=== PATIENT | female | born 1965 | race Two or more races ===

== ENCOUNTER 2024-03-27 13:03 | Inpatient (IN) | payer OTHER ==
[~2024-03-27] VITALS: Ht 157.5 cm; Wt 113.4 kg
--- NOTE | 2024-03-27 13:47 | DVH ---
CHEST RADIOGRAPH Indication: SOB Technique: Single frontal view of the chest was obtained COMPARISON: None FINDINGS: Lines and Tubes: None Lungs: Clear Pleura: No effusion. No pneumothorax. Cardiomediastinal contours: Unremarkable Bones: Unremarkable IMPRESSION: 1. No acute disease.
[2024-03-27 14:02] LABS: Basophils # (auto) 0 10 ^3/uL (0-0.2); Basophils % (auto) 0.3 % (0.0-2.0); Eosinophils # (auto) 0 10 ^3/uL (0-0.8); Eosinophils % (auto) 0.3 % (0.0-7.0); Hematocrit 43.1 % (36.0-46.0); Hemoglobin 14.7 g/dL (12.2-16.2); Lymphocytes % (auto) 11.6 % (10.0-50.0); Mean Corpuscular Hemoglobin 30.9 pg (28.0-32.0); Mean Corpuscular Hgb Conc. 34.2 g/dL (32.0-36.0); Mean Corpuscular Volume 90.6 fL (80.0-100.0); Monocytes # (auto) 0.2 10 ^3/uL (0-1.3); Monocytes % (auto) 1.9 % (0.0-12.0); Neutrophils # (auto) 7.6 10 ^3/uL (1.6-8.6); Neutrophils % (auto) 85.9 % (37.0-80.0); Platelet Count (auto) 161 10^3/uL (140-450); Red Blood Cells 4.76 10^6/uL (4.0-5.20); Red Cell Distribution Width 15.6 % (11.8-14.3); White Blood Cell 8.9 10^3/uL (4.4-10.8)
--- NOTE | 2024-03-27 14:12 | ED.PDOC ---
SOB-HPI HPI Comments 59y F who presents to the ED via EMS for chief complaint of shorntess of breath. Pt states she has been having shortness of breath for the past 2 weeks. Pt states she has been having cough and states she went to [facility]. Pt states she was dx with COVKATHLEEN and PNA at [facility] and recently discharged. Pt states earlier today, she started to have increased shortness of breath and called EMS. EMS upon arrival, pt had 02 sat of 87% and pt was placed on 02 and pt 02 sat went to 94% and pt was placed on 4 L and brought to the ED. Pt in the ED, otherwise has no current respiratory distress. Pt otherwise denies chest pain and any associated symptoms. Pt denies any other symptoms at this time. Chief Complaint: Shortness of Breath Time Seen by MD: 14:00 Reviewed notes: Nurses Notes Information Source: Patient, Emergency Med Personnel Mode of Arrival: EMS Brought in by: EMS Past Medical History PAST MEDICAL HISTORY: Denies Surgical History: Denies all surgeries ANIMAL PHYSIOLOGIST History: Unknown Family History Family History: Unknown Social History Smoker: Non-Smoker Alcohol: Denies ETOH Use Drugs: Denies Drug Use Lives In: Home Constitutional: denies: chills, diaphoresis, fatigue, fever, malaise, sweats, weakness, others EENTM: denies: blurred vision, double vision, ear bleeding, ear discharge, ear drainage, ear pain, ear ringing, eye pain, eye redness, hearing loss, mouth pain, mouth swelling, nasal discharge, nose bleeding, nose congestion, nose pain, photophobia, tearing, throat pain, throat swelling, voice changes, others Respiratory: reports: cough, shortness of breath; denies: hemoptysis, orthopnea, SOB at rest, SOB with excertion, stridor, wheezing, others Cardiovascular: denies: chest pain, dizzy spells, diaphoresis, Dyspnea on exertion, edema, irregular heart beat, left arm pain, lightheadedness, palpitations, PND, syncope, others Gastrointestinal: denies: abdomen distended, abdominal pain, blood streaked bowels, constipated, diarrhea, dysphagia, difficulty swallowing, hematemesis, melena, nausea, poor appetite, poor fluid intake, rectal bleeding, rectal pain, vomiting, others Genitourinary: denies: abnormal vagina bleeding, burning, dyspareunia, dysuria, flank pain, frequency, hematuria, incontinence, pain, , vagina discharge, urgency, others Neurological: denies: dizziness, fainting, headache, left sided numbness, left sided weakness, numbness, paresthesia, pre-existing deficit, right sided numbness, right sided weakness, seizure, speech problems, tingling, tremors, weakness, others Musculoskeletal: denies: back pain, gout, joint pain, joint swelling, muscle pain, muscle stiffness, neck pain, others Integumetry: denies: bruises, change in color, change in hair/nails, dryness, laceration, lesions, lumps, rash, wounds, others Allergic/Immunocompromised: denies: Difficulty Healing, Frequent Infections, Hives, Itching, others Hematologic/Lymphatic: denies: anemia, blood clots, easy bleeding, easy bruising, swollen glands, others Endocrine: denies: excessive hunger, excessive sweating, excessive thirst, excessive urination, flushing, intolerance to cold, intolerance to heat, unexplained weight gain, unexplained weight loss, others Psychiatric: denies: anxiety, bipolar disorder, depression, hopeless, panic disorder, schizophrenia, sleepless, suicidal, others All Other Systems: Reviewed and Negative Physical Exam General Appearance: Moderate Distress HEENT: Normal ENT Inspection, Pharynx Normal, TMs Normal Neck: Full Range of Motion, Non-Tender, Normal, Normal Inspection Respiratory: Decreased Breath Sounds, Respiratory Distress Cardiovascular: No Edema, No JVD, No Murmur, No Gallop, Normal Peripheral Pulses, Regular Rate/Rhythm Breast Exam: Deferred Gastrointestinal: No Organomegaly, Non Tender, No Pulsatile Mass, Normal Bowel Sounds, Soft Genitalia: Deferred Pelvic: Deferred Rectal: Deferred Extremities: No calf tenderness, Normal capillary refill, Normal inspection, Normal range of motion, Non-tender, No pedal edema Musculoskeletal : Apperance: Normal Neurologic: Alert, 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 Was a procedure done?: No Differential Dx Differential Diagnosis: Asthma, Bronchitis, CHF, COPD, Pneumonia, Respiratory Distress, URI Comments COVID, Influenza A and B, X-Ray, Labs, Meds, VS Vital Signs Date Time Temp Pulse Resp B/P (MAP) Pulse Ox O2 Delivery O2 Flow Rate FiO2 03/27/24 13:08 Nasal Cannula* 2 28 03/27/24 13:08 Nasal Cannula* 2 28 03/27/24 13:08 98.7 90 20 152/100 (117) 97 03/27/24 13:06 87 Lab Test 03/27/24 13:42 Range/Units White Blood Count 8.9 4.4-10.8 10^3/uL Red Blood Count 4.76 4.0-5.20 10^6/uL Hemoglobin 14.7 12.2-16.2 g/dL Hematocrit 43.1 36.0-46.0 % Mean Corpuscular Volume 90.6 80.0-100.0 fL Mean Corpuscular Hemoglobin 30.9 28.0-32.0 pg Mean Corpuscular Hemoglobin Concent 34.2 32.0-36.0 g/dL Red Cell Distribution Width 15.6 H 11.8-14.3 % Platelet Count 161 140-450 10^3/uL Mean Platelet Volume 10.0 6.9-10.8 fL Neutrophils (%) (Auto) 85.9 H 37.0-80.0 % Lymphocytes (%) (Auto) 11.6 10.0-50.0 % Monocytes (%) (Auto) 1.9 0.0-12.0 % Eosinophils (%) (Auto) 0.3 0.0-7.0 % Basophils (%) (Auto) 0.3 0.0-2.0 % Neutrophils # (Auto) 7.6 1.6-8.6 10 ^3/uL Lymphocytes # (Auto) 1.0 0.4-5.4 10 ^3/uL Monocytes # (Auto) 0.2 0-1.3 10 ^3/uL Eosinophils # (Auto) 0 0-0.8 10 ^3/uL Basophils # (Auto) 0 0-0.2 10 ^3/uL Nucleated Red Blood Cells 0.0 % Sodium Level 139 136-145 mmol/L Potassium Level 3.5 3.5-5.1 mmol/L Chloride Level 107 98-107 mmol/L Carbon Dioxide Level 26 20-31 mmol/L Anion Gap 6 5-15 Blood Urea Nitrogen 13 9-23 mg/dL Creatinine 0.76 0.550-1.02 mg/dL Glomerular Filtration Rate Calc 90 >90 mL/min BUN/Creatinine Ratio 17.1 10.0-20.0 Serum Glucose 207 H 74-106 mg/dL Lactic Acid Level 1.5 0.4-2.0 mmol/L Calcium Level 9.8 8.7-10.4 mg/dL Total Bilirubin 1.1 H 0.2-1.0 mg/dL Aspartate Amino Transferase (AST) 30 13-40 U/L Alanine Aminotransferase (ALT) 29 7-40 U/L Alkaline Phosphatase 144 H 46-116 U/L Troponin I High Sensitivity 31 </=34 ng/L B-Type Natriuretic Peptide 27.74 0-100 pg/mL Total Protein 8.6 H 5.7-8.2 g/dL Albumin 3.4 3.2-4.8 g/dL [place] [id number] Ph: [phone] DIAGNOSTIC IMAGING Diagnostic Imaging Report : [id number] Signed PATIENT: FLO WARD ACCT: [id number] UNIT: [id number] : 1965 LOC: ER ROOM / BED: / AGE / SEX: 59 / F ADM STATUS: REG ER SERVICE 1318 ORDERING PHYSICIAN: CHAVA AMADO MD PROCEDURE(s): CXRP - CHEST PORTABLE REASON: SOB ORDER NUMBER(s): [id number], ACCESSION NUMBER(s): [id number] CHEST RADIOGRAPH Indication: SOB Technique: Single frontal view of the chest was obtained COMPARISON: None FINDINGS: Lines and Tubes: None Lungs: Clear Pleura: No effusion. No pneumothorax. Cardiomediastinal contours: Unremarkable Bones: Unremarkable IMPRESSION: 1. No acute disease. ATED BY: HERI ZULETA MD DICTATED DATE/TIME: 03/27/241344 SIGNED BY: HERI ZULETA MD SIGNED DATE/TIME: 03/27/241344 CC: Time of 1ST Reevaluation: 14:30 Reevaluation 1ST: Unchanged Time of 2ND Reevaluation: 14:35 Reevaluation 2ND: Unchanged Patient Education/Counseling: Diagnosis, Treatment Family Education/Counseling: No Family Present Sepsis Sepsis Reasesment Focused Exam Sepsis focused exam: focus exam completed, time: (1430) Departure 1 Departure Time of Disposition: 14:35 Impression: Primary Impression: Respiratory failure with hypoxia Additional Impression: COVID-19 Disposition: 09 ADMITTED INPATIENT Condition: Guarded Discharged With: Self Critical Care Note Critical Care Time?: Yes (45 min-critical care time only) Critical care comment: Total critical care time: Approximately 36 minutes Due to a high probability of clinically significant, life threatening deterioration, the patient required my highest level of preparedness to intervene emergently and I personally spent this critical care time directly and personally managing the patient. This critical care time included obtaining a history; examining the patient; pulse oximetry; ordering and review of studies; arranging urgent treatment with development of a management plan; evaluation of patient's response to treatment; frequent reassessment; and, discussions with other providers. This critical care time was performed to assess and manage the high probability of imminent, life-threatening deterioration that could result in multi-organ failure. It was exclusive of separately billable procedures and treating other patients. Stability Stability form required: No Heart Score Heart Score: Heart Score Response (Comments) Value History Slightly Suspicious 0 EKG Normal 0 Age <45 0 Risk Factors No known risk factors 0 Troponin N/A 0 Total 0 I personally scribed for CHAVA AMADO MD (AMA) on 03/27/24 at 14:12. Electronically submitted by Milton Del Rio ([email or web address]). I personally scribed for CHAVA AMADO MD ([email or web address]) on 03/27/24 at 14:15. Electronically submitted by Milton MCLEOD). CHAVA AMADO MD Mar 27, 2024 14:12
[2024-03-27 14:25] LABS: Alanine Aminotransferase 29 U/L (7-40); Albumin 3.4 g/dL (3.2-4.8); Anion Gap 6 (5-15); Aspartate Aminotransferase 30 U/L (13-40); BUN/Creatinine Ratio 17.1 (10.0-20.0); Blood Urea Nitrogen 13 mg/dL (9-23); Calcium 9.8 mg/dL (8.7-10.4); Carbon Dioxide 26 mmol/L (20-31); Chloride 107 mmol/L (98-107); Sodium 139 mmol/L (136-145)
[2024-03-27 14:26] LABS: Bilirubin, Total 1.1 mg/dL (0.2-1.0)
[2024-03-27 14:28] LABS: Alkaline Phosphatase 144 U/L (46-116); Glucose 207 mg/dL (74-106); Potassium 3.5 mmol/L (3.5-5.1); Total Protein 8.6 g/dL (5.7-8.2)
[2024-03-27 15:00] VITALS: PULSE 83; RESP 20; O2SAT 95
[2024-03-27] MEDS: cefTRIAXone 1GM/50ML D5W 50 ML IV ONE (16:01)
--- NOTE | 2024-03-27 16:39 | ECG ---
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
[2024-03-27 17:38] LABS: COVID19 ANTIGEN SOFIA FIA NEGATIVE (NEGATIVE); Rapid Influenza A Negative (Negative); Rapid Influenza B Negative (Negative)
[2024-03-27 19:45] VITALS: PULSE 85; RESP 16; O2SAT 95
[2024-03-27] MEDS ORDERED: ONDANSETRON HCL 4 MG/2 ML VIAL IV PRN (19:45)
[2024-03-27] MEDS ORDERED: HYDROcodone-ACET 5/325MG TAB PO PRN (19:45)
[2024-03-27] MEDS ORDERED: DOCUSATE SOD 100 MG CAP PO PRN (19:45)
[2024-03-27] MEDS ORDERED: hydrALAZINE HCL 20 MG/ML VL IV PRN (19:45)
[2024-03-27] MEDS ORDERED: DEXTROSE (50%) 50ML SYRG IV PRN (19:45)
[2024-03-27] MEDS: SODIUM CHLORIDE 0.9% 1,000 ML IV SCH (20:51)
[2024-03-27] MEDS: CARVEDILOL 3.125 MG TAB PO SCH (22:12)
[2024-03-27] MEDS: ACCU-CHEK COMFORT CURVE STRIP VI SCH (22:12)
[2024-03-27] MEDS: InsuLIN REG 1unit/0.01ml Soln (100units/ml) SC SCH (22:13)
[2024-03-27] MEDS ORDERED: NITROGLYCERIN 0.4 MG SL TAB SL PRN (23:15)
[2024-03-27] MEDS ORDERED: MORPHINE SULFATE INJ 2 MG/ml SYRG IV PRN (23:15)
--- NOTE | 2024-03-27 23:16 | DVHHP2 ---
History of Present Illness Reason for Visit: Acute respiratory failure with hypoxia History of Present Illness The patient is a 59 years old female past medical history of diabetes mellitus and hypertension presented to [facility] ED with complaint of shortness of breaths for the past 2 weeks. Patient reports symptoms progressively get worse with cough, weakness, progressively getting worse. Patient she was recently diagnosed with COVID and pneumonia at [facility] and discharged home with treatment regimen. Patient was seen and evaluated in the ED, laboratory data shows WBC 8.9, platelets 161, sodium 139, potassium three five, BUN 13, creatinine 0.76, GFR 90, glucose 207, BNP 27.74, troponin 29, blood pressure 147/89, heart rate 82, temperature 98.8 F, O2 saturation 96% on oxygen. Chest x-ray show no acute cardiopulmonary disease. On my assessment, patient denied chest pain, no headache, no dizziness, no diaphoresis, currently on oxygen, no abdominal pain, no diarrhea, no nausea, no vomiting, no fever, no chills. Patient was admitted for further evaluation and medical management. Past Medical History Diabetes mellitus, HTN Past Surgical History Denies all surgeries Family History Reviewed, noncontributory to the management of this case. Past Social History The patient lives at home, denies smoking, alcohol or illicit drugs abuse. Review of Systems Constitutional: No: Fever, Chills, Sweats, Weakness, Malaise, Other Eyes: No: Pain, Vision change, Conjunctivae inflammation, Eyelid inflammation, Other, Redness ENT: No: Ear pain, Ear discharge, Nose pain, Nose discharge, Nose congestion, Mouth pain, Mouth swelling, Throat pain, Throat swelling, Other Respiratory: Cough, Shortness of breath; No: Dry, SOB with excertion, Wheezing, Hemoptysis, Pleuritic Pain, Sputum, Wheezing, Other Cardiovascular: No: Chest Pain, Palpitations, Orthopnea, Paroxysmal Noc. Dyspnea, Edema, Lt Headedness, Other Gastrointestinal: No: Nausea, Vomiting, Abdominal Pain, Diarrhea, Constipation, Melena, Hematochezia, Other Genitourinary: No Dysuria, No Frequency, No Incontinence, No Hematuria, No Retention, No Other Musculoskeletal: No: other, neck pain, shoulder pain, arm pain, back pain, hand pain, leg pain, foot pain Skin: No: Rash, Lesions, Jaundice, Bruising, Other Neurological: No: Weakness, Numbness, Incoordination, Change in speech, Confusion, Seizures, Other Allergies: Coded Allergies: NO KNOWN ALLERGIES (Unverified , 03/27/24) Medications Current Medications Medications Dose Ordered Sig/Esme Route Start Time Stop Time Status Last Admin Dose Admin Amlodipine Besylate 5 mg DAILY PO 03/28/24 10:00 Carvedilol 3.125 mg Q12HR PO 03/27/24 22:00 03/27/24 22:12 3.125 MG Hydralazine HCl 10 mg Q6HP PRN IV 03/27/24 19:45 Diagnostic Test (Pha) 1 strip ACHS 03/27/24 22:00 03/27/24 22:12 1 STRIP Insulin Human Regular HS SC 03/27/24 22:00 03/27/24 22:13 8 UNITS Insulin Human Regular AC SC 03/28/24 07:00 Dextrose 50 ml UD PRN IV 03/27/24 19:45 Sodium Chloride 1,000 ml @ 60 mls/hr [id number] IV 03/27/24 19:45 03/27/24 20:51 60 MLS/HR Acetaminophen/ Hydrocodone Bitart 1 tab Q4HP PRN PO 03/27/24 19:45 Ondansetron HCl 4 mg Q4HP PRN IV 03/27/24 19:45 Docusate Sodium 100 mg BIDPRN PRN PO 03/27/24 19:45 Acetaminophen 650 mg Q6HP PRN PO 03/27/24 19:45 Aspirin 81 mg DAILY PO 03/28/24 10:00 Exam Vital Signs Vital Signs Date Time Temp Pulse Resp B/P (MAP) Pulse Ox O2 Delivery O2 Flow Rate FiO2 03/27/24 22:12 82 107/52 03/27/24 19:45 97.9 16 95 97.9 03/27/24 19:45 Nasal Cannula* 2 28 General Appearance: Alert, Oriented X3, Cooperative, No acute distress HEENT: Atraumatic, PERRLA, EOMI, Mucous membr. moist/pink Respiratory: Clear to auscultation, Normal air movement Cardiovascular: Regular rate, Normal S1, Normal S2, No murmurs Abdominal: Normal bowel sounds, Soft, No tenderness, No hepatospenomegaly, No masses Extremities: No clubbing, No cyanosis, No edema, Normal pulses, No tenderness/swelling Skin: No rashes, No breakdown, No significant lesion Neuro: Normal gait, Normal speech, Strength at 5/5 X4 ext, Normal tone, Sensation intact, Cranial nerves 3-12 NL, Reflexes 2+ Psych/Mental Status: Mental status NL, Mood NL Labs/Xrays Labs Test 03/27/24 21:39 03/27/24 17:00 03/27/24 14:44 03/27/24 13:42 Range/Units POC Glucose 327 H 70-106 mg/dl Influenza Type A Antigen Negative Negative Influenza Type B Antigen Negative Negative SARS-CoV-2 Antigen (Rapid) Negative NEGATIVE Troponin I High Sensitivity 29 </=34 ng/L White Blood Count 8.9 4.4-10.8 10^3/uL Red Blood Count 4.76 4.0-5.20 10^6/uL Hemoglobin 14.7 12.2-16.2 g/dL Hematocrit 43.1 36.0-46.0 % Mean Corpuscular Volume 90.6 80.0-100.0 fL Mean Corpuscular Hemoglobin 30.9 28.0-32.0 pg Mean Corpuscular Hemoglobin Concent 34.2 32.0-36.0 g/dL Red Cell Distribution Width 15.6 H 11.8-14.3 % Platelet Count 161 140-450 10^3/uL Mean Platelet Volume 10.0 6.9-10.8 fL Neutrophils (%) (Auto) 85.9 H 37.0-80.0 % Lymphocytes (%) (Auto) 11.6 10.0-50.0 % Monocytes (%) (Auto) 1.9 0.0-12.0 % Eosinophils (%) (Auto) 0.3 0.0-7.0 % Basophils (%) (Auto) 0.3 0.0-2.0 % Neutrophils # (Auto) 7.6 1.6-8.6 10 ^3/uL Lymphocytes # (Auto) 1.0 0.4-5.4 10 ^3/uL Monocytes # (Auto) 0.2 0-1.3 10 ^3/uL Eosinophils # (Auto) 0 0-0.8 10 ^3/uL Basophils # (Auto) 0 0-0.2 10 ^3/uL Nucleated Red Blood Cells 0.0 % Sodium Level 139 136-145 mmol/L Potassium Level 3.5 3.5-5.1 mmol/L Chloride Level 107 98-107 mmol/L Carbon Dioxide Level 26 20-31 mmol/L Anion Gap 6 5-15 Blood Urea Nitrogen 13 9-23 mg/dL Creatinine 0.76 0.550-1.02 mg/dL Glomerular Filtration Rate Calc 90 >90 mL/min BUN/Creatinine Ratio 17.1 10.0-20.0 Serum Glucose 207 H 74-106 mg/dL Lactic Acid Level 1.5 0.4-2.0 mmol/L Calcium Level 9.8 8.7-10.4 mg/dL Total Bilirubin 1.1 H 0.2-1.0 mg/dL Aspartate Amino Transferase (AST) 30 13-40 U/L Alanine Aminotransferase (ALT) 29 7-40 U/L Alkaline Phosphatase 144 H 46-116 U/L B-Type Natriuretic Peptide 27.74 0-100 pg/mL Total Protein 8.6 H 5.7-8.2 g/dL Albumin 3.4 3.2-4.8 g/dL PATIENT: FLO WARD ACCT: [id number] UNIT: [id number] : 1965 LOC: ER ROOM / BED: / AGE / SEX: 59 / F ADM STATUS: REG ER SERVICE 1318 ORDERING PHYSICIAN: CHAVA AMADO MD PROCEDURE(s): CXRP - CHEST PORTABLE REASON: SOB ORDER NUMBER(s): [id number], ACCESSION NUMBER(s): [id number] CHEST RADIOGRAPH Indication: SOB Technique: Single frontal view of the chest was obtained COMPARISON: None FINDINGS: Lines and Tubes: None Lungs: Clear Pleura: No effusion. No pneumothorax. Cardiomediastinal contours: Unremarkable Bones: Unremarkable IMPRESSION: 1. No acute disease. Assessment/Plan Assessment/Plan Respiratory failure with hypoxia Generalized weakness Diabetes mellitus with hyperglycemia Plan 1. Admit to telemetry unit 2. Breathing treatment 3. Pain control management 4. Management of fluids and electrolytes 5. Consultation for pulmonology 6. Diagnostic tests chest x-ray 7. DVT prophylaxis-on aspirin 8. Repeat labs CBC, CMP in a.m. 9. Continue with current medical management 10. Treatment plan discussed with patient and RN. Patient verbalized understanding. Plan discussed with: Patient, Other (RN) My Orders Orders - SAM JERNIGAN DNP Procedure Category Date Status Time Amlodipine Tablet PHA 03/28/24 In Process (Norvasc Tablet) 10:00 Carvedilol Tablet PHA 03/27/24 In Process (Coreg Tablet) 22:00 Hydralazine Injection PHA 03/27/24 In Process (Apresoline Inject 19:45 Consistent DIET 03/28/24 Transmitted Carb(Ccho)Diabetes Breakfast Glucose Blood PHA 03/27/24 In Process (Accu-Chek Comfort 22:00 Insulin R (Human) PHA 03/27/24 In Process (Insulin R) 22:00 Insulin R (Human) PHA 03/28/24 In Process (Insulin R) 07:00 Dextrose 50% Syringe PHA 03/27/24 In Process 19:45 Allergies JEFF 03/27/24 In Process 19:42 Code Status CODE 03/27/24 Transmitted 19:42 Sodium Chloride 0.9% PHA 03/27/24 In Process 19:45 Oxygen Per Hour RT 03/27/24 Transmitted 19:42 Hydrocodone-Acet PHA 03/27/24 In Process 5/325mg Tab ([place] 19:45 Ondansetron Hcl PHA 03/27/24 In Process (Zofran) 19:45 Docusate Sodium PHA 03/27/24 In Process Capsule (Colace 19:45 Complete Blood Count LAB 03/28/24 Verified 04:00 Comprehensive LAB 03/28/24 Verified Metabolic Panel 04:00 Condition: Serious JEFF 03/27/24 In Process 19:42 Acetaminophen Tablet PHA 03/27/24 In Process (Tylenol Tablet) 19:45 Bedrest With Bathroom JEFF 03/27/24 In Process Privileg 19:42 Sequential JEFF 03/27/24 In Process Compression Device Aspirin Tablet PHA 03/28/24 In Process 10:00 Problem List: (1) Respiratory failure with hypoxia (2) Generalized weakness (3) Diabetes mellitus with hyperglycemia Date of Service: Mar 27, 2024 Billing Provider: SAM JERNIGAN DNP Common Visit Codes: [id number] INP/OBS CARE (HIGH) SAM JERNIGAN DNP Mar 27, 2024 23:16
[2024-03-28] VITALS (9 sets, daily range): BP systolic 114–115; BP diastolic 58–71; PULSE 60–85; RESP 16–19; TEMP 97.9; O2SAT 93–98
[2024-03-28 06:19] LABS: Basophils # (auto) 0 10 ^3/uL (0-0.2); Eosinophils # (auto) 0 10 ^3/uL (0-0.8); Hematocrit 38.8 % (36.0-46.0); Hemoglobin 13.3 g/dL (12.2-16.2); Lymphocytes # (auto) 1.2 10 ^3/uL (0.4-5.4); Lymphocytes % (auto) 15.6 % (10.0-50.0); Mean Corpuscular Hemoglobin 31.3 pg (28.0-32.0); Mean Corpuscular Hgb Conc. 34.3 g/dL (32.0-36.0); Mean Corpuscular Volume 91.2 fL (80.0-100.0); Monocytes # (auto) 0.3 10 ^3/uL (0-1.3); Monocytes % (auto) 4.7 % (0.0-12.0); Neutrophils # (auto) 5.9 10 ^3/uL (1.6-8.6); Neutrophils % (auto) 79.7 % (37.0-80.0); Nucleated Red Blood Cells % 0.1 %; Platelet Count (auto) 141 10^3/uL (140-450); Red Blood Cells 4.26 10^6/uL (4.0-5.20); Red Cell Distribution Width 15.6 % (11.8-14.3); White Blood Cell 7.4 10^3/uL (4.4-10.8)
[2024-03-28 06:29] LABS: Alanine Aminotransferase 23 U/L (7-40); Albumin 3.3 g/dL (3.2-4.8); Anion Gap 8 (5-15); Aspartate Aminotransferase 22 U/L (13-40); BUN/Creatinine Ratio 23.9 (10.0-20.0); Blood Urea Nitrogen 22 mg/dL (9-23); Calcium 9.9 mg/dL (8.7-10.4); Carbon Dioxide 23 mmol/L (20-31); Potassium 3.5 mmol/L (3.5-5.1); Sodium 139 mmol/L (136-145)
[2024-03-28 06:30] LABS: Alkaline Phosphatase 117 U/L (46-116); Bilirubin, Total 0.6 mg/dL (0.2-1.0); Chloride 108 mmol/L (98-107); Glucose 303 mg/dL (74-106); Total Protein 8.2 g/dL (5.7-8.2)
[2024-03-28] MEDS: InsuLIN REG 1unit/0.01ml Soln (100units/ml) SC SCH (06:48)
[2024-03-28] MEDS: IPRATROPIUM BROM 0.5 MG/2.5ML INH SOL ONE (09:55)
[2024-03-28] MEDS: ALBUTEROL SULF 2.5 MG/0.5ML(0.5%) NEB SOLN ONE (09:55)
[2024-03-28] MEDS: IPRATROPIUM BROM 0.5 MG/2.5ML INH SOL NEB ONE (10:09)
[2024-03-28] MEDS: ALBUTEROL SULF 2.5 MG/0.5ML(0.5%) NEB SOLN NEB ONE (10:09)
[2024-03-28] MEDS: cefTRIAXone 1GM/50ML D5W 50 ML IV ONE (11:29)
[2024-03-28] MEDS: FUROSEMIDE 40 MG/4 ML VIAL IV ONE (11:32)
[2024-03-28] MEDS: ASPirin 81 mg TAB PO SCH (11:32)
[2024-03-28] MEDS: AZITHROMYCIN 250 MG TAB PO SCH (11:32)
[2024-03-28] MEDS: amLODIPine BESYLATE 5 MG TAB PO SCH (11:33)
[2024-03-28] MEDS: IPRATROPIUM BROM 0.5 MG/2.5ML INH SOL NEB SCH (13:01)
[2024-03-28] MEDS: ALBUTEROL SULF 2.5 MG/0.5ML(0.5%) NEB SOLN NEB SCH (13:01)
--- NOTE | 2024-03-28 14:03 | DVHPNRES ---
Progress Note Date Seen: Mar 28, 2024 Resident Creating Document: ZEYAD GOYAL RESIDENT Medical Necessity Reason Pt with a Central, PICC or Fol: No Subjective Review of Systems Patient is a 59-year-old female with a past medical history of type 2 diabetes mellitus, hypertension, coronary artery disease came to the ED with a chief complaint of worsening shortness of breath. Patient reports that since the last 2 weeks she has had worsening shortness of breath. About 2 weeks ago she started to have cough which was mostly dry with the associated nasal congestion, fever and chills. The patient reportedly went to urgent care clinic, patient reports about 2 weeks ago she was diagnosed with the COVID and pneumonia at [facility] and was recently discharged. Yesterday she started to have worsening shortness of breath following which she called the 911 who reported her oxygen was less than 88% on arrival and patient was placed on oxygen and brought to the hospital for further evaluation. Past medical history: Type 2 diabetes mellitus, hypertension, coronary artery disease(status post coronary angiography not showing any occlusive coronary artery disease) Past surgical history: Coronary angiography Social history: Patient lives with family and currently denies smoking, alcohol, drug use Medications: Carvedilol 6.25 mg b.i.d., amlodipine 10 mg q.d., metformin 1000 mg b.i.d., aspirin 81 mg Review of systems Patient seen and examined at bedside Reports that she is feeling better but still has some respiratory distress if weaned off oxygen, currently on 2 L oxygen per minute via nasal cannula Denies dysuria, chest pain, palpitations, fever, chills, headache Objective vital signs Vital Sign Date Time Temp Pulse Resp B/P (MAP) Pulse Ox O2 Delivery O2 Flow Rate FiO2 03/28/24 13:08 63 18 97 03/28/24 13:06 Nasal Cannula 2.0 03/28/24 13:02 28 03/28/24 12:00 123/68 (86) 03/28/24 07:30 98.1 98.1 Total Intake and Output 03/27/24 03/27/24 03/28/24 15:00 23:00 07:00 Intake Total 170 ml 420 ml Balance 170 ml 420 ml medications Current Medications Medications Dose Ordered Sig/Esme Route Start Time Stop Time Status Last Admin Dose Admin Amlodipine Besylate 5 mg DAILY PO 03/28/24 10:00 03/28/24 11:33 5 MG Carvedilol 3.125 mg Q12HR PO 03/27/24 22:00 03/28/24 11:37 3.125 MG Hydralazine HCl 10 mg Q6HP PRN IV 03/27/24 19:45 Diagnostic Test (Pha) 1 strip ACHS 03/27/24 22:00 03/28/24 11:58 1 STRIP Insulin Human Regular HS SC 03/27/24 22:00 03/27/24 22:13 8 UNITS Insulin Human Regular AC SC 03/28/24 07:00 03/28/24 12:00 9 UNITS Dextrose 50 ml UD PRN IV 03/27/24 19:45 Sodium Chloride 1,000 ml @ 60 mls/hr [id number] IV 03/27/24 19:45 03/28/24 11:51 60 MLS/HR Acetaminophen/ Hydrocodone Bitart 1 tab Q4HP PRN PO 03/27/24 19:45 Ondansetron HCl 4 mg Q4HP PRN IV 03/27/24 19:45 Docusate Sodium 100 mg BIDPRN PRN PO 03/27/24 19:45 Acetaminophen 650 mg Q6HP PRN PO 03/27/24 19:45 Aspirin 81 mg DAILY PO 03/28/24 10:00 03/28/24 11:32 81 MG Nitroglycerin 0.4 mg Q5MINP PRN SL 03/27/24 23:15 Morphine Sulfate 2 mg Q30M PRN IV 03/27/24 23:15 Albuterol 2.5 mg Q8HR NEB 03/28/24 14:00 03/28/24 13:01 2.5 MG Ipratropium [place] 0.5 mg Q8HR NEB 03/28/24 14:00 03/28/24 13:01 0.5 MG Azithromycin 500 mg DAILY PO 03/28/24 10:00 03/28/24 11:32 500 MG Examination Physical Examination Constitution: Patient was alert and oriented to time, place and person and is in no acute respiratory distress Gen - no pallor, no icterus, no cyanosis, no clubbing, no LAD, trace to 1+ pitting edema. Skin - Patients skin is warm and dry. HEENT - normocephalic, atraumatic, moist mucous membranes. Neck - full ROM, no LAD, no JVD Pulmonary - B/L equal air entry with basilar crackles more on the left side, no wheezing. cardiovascular - normal S1,S2 heard. no murmurs heard. peripheral pulses normal radial 2+, pedal 2+. GI - soft abdomen without tenderness to palpation . no hepatospleenomegaly. Bowel sounds normoactive Neurological - Bilateral upper extremity strength 5/5, bilateral lower extremity strength 5/5, no facial droop, normal speech, no tremor, no sensory deficiets. laboratory and microbiology Laboratory Tests 03/28/24 05:28 Test 03/28/24 05:28 Range/Units Serum Glucose 303 H 74-106 mg/dL Problem List/Assessment/Plan Problem List/Assessment/Plan Assessment Acute hypoxic respiratory failure ? Acute on chronic heart failure with preserved versus reduced ejection fraction Suspected community-acquired pneumonia likely due to Gram-negative versus atypical bacteria Uncontrolled type 2 diabetes mellitus with hyperglycemia Chest x-ray shows bilateral lower lobe haziness likely Interstitial pulmonary edema Echo pending Blood culture pending Respiratory culture pending MRSA pending HbA1c 7.2% COVID and influenza negative Plan - started on furosemide 40 mg IV daily - continued on carvedilol at low dose 3.125 mg q.12 hours, amlodipine 5 mg q.d. - ceftriaxone 1 g IV daily and azithromycin 500 mg p.o. daily - DuoNebs q.8hr - on oxygen 2 liter/minute via nasal cannula, will try to wean off. - incentive spirometry - insulin Lantus 18 units HS and moderate sliding scale insulin a.c. Goals of care discussed with the patient for over 27 minutes. Full code Plan discussed with Dr. Matthew Plan discussed with: Patient My Orders My Orders Orders - ZEYAD GOYAL RESIDENT Procedure Category Date Status Time Echo 2d Mode Cardiac US 03/28/24 Logged DOP 09:47 Albuterol Medneb PHA 03/28/24 In Process (Ventolin Medneb) 14:00 Ipratropium Medneb PHA 03/28/24 In Process (Atrovent Medneb) 14:00 Azithromycin Tablet PHA 03/28/24 In Process (Zithromax Tablet) 10:00 Date of Service: Mar 28, 2024 Billing Provider: JCARLOS MATTHEW MD Common Visit Codes: [id number] INP/OBS CARE(HIGH) ZEYAD GOYAL RESIDENT Mar 28, 2024 14:03 JCARLOS MATTHEW MD Mar 28, 2024 20:17
--- NOTE | 2024-03-28 17:13 | DVHSR ---
APPROVED REPORT EXAM: Two-dimensional and M-mode echocardiogram with Doppler and color Doppler. Blood Pressure: 115/71 mmHg INDICATION Shortness of breath RISK FACTORS Obesity: Height: 5'2", Weight: 230 DIMENSIONS LVDd4.9 (3.8-5.7cm)LA (2D)4.0 (1.9-4.0cm)Aortic Root3.3 (2.0-3.7cm) LVDs3.2 (2.5-4.0cm)LA (MM) (1.9-4.0cm)Aortic Cusp Exc1.9 (1.5-2.0cm) EF (%) 60.0 (55-70%)Rt. Atrium4.0 (1.9-4.0cm)Asc. Aorta cm IVSd1.0 (0.7-1.1cm)RV (D) (1.8-2.4cm) PWd0.9 (0.7-1.1cm) Mitral Valve MitralMitral Stenosis E wave0.95m/sMV Mean GR.mmHg A wave1.08m/sMV Peak GR.mmHg E/A ratio0.92D MVAcm2 DECEL [id number] 1/2 [place] Aortic Valve Aortic ValveAortic Stenosis V11.20m/Consuelo Mean GR.7mmHg V21.83m/Consuelo Peak GR.13mmHg LVOT Diameter2.1 (1.8-2.4cm)Doppler AVA2.27cm2 Tricuspid Valve TR Velocity2.59m/s [id number] LEFT VENTRICLE The left ventricle is of normal size. Wall thickness is normal. Ejection fraction is normal and is estimated at 60%. There is no gross wall motion abnormalities but endocardial definition is suboptim al. There is a grade II diastolic dysfunction. E to E prime ratio is in the normal range. RIGHT VENTRICLE The right ventricle is mildly dilated in size. Systolic function is normal. ATRIA Both atria are mildly dilated in size. Interatrial septum is not well visualized. MITRAL VALVE Normal structure and function. No significant mitral regurgitation. PULMONIC VALVE Not visualized. TRICUSPID VALVE Normal structure and function. There is mild tricuspid regurgitation. PA systolic pressure is estim ated at 30-35 mm Hg. AORTIC VALVE Not well visualized. There is no significant stenosis or regurgitation. GREAT VESSELS The aortic root is of normal size. The ascending aorta is not visualized. PERICARDIAL EFFUSION No significant effusion. IVC is not visualized. Other Information Technically limited study due to body habitus. Conclusion The study is technically limited. Normal left ventricular size and systolic function. Ejection fraction is estimated at 60%. Dilated right ventricle with preserved systolic function. No hemodynamically significant valvular disease. PA systolic pressure is estimated at 30-35 mm Hg.
[2024-03-28 19:41] LABS: Urine Bacteria None Seen /hpf (None Seen)
[2024-03-28 19:57] LABS: Urine Blood Negative /uL (Negative); Urine Clarity Clear (Clear); Urine Color Colorless (Yellow); Urine Protein, UAD Negative (Negative); Urine Specific Gravity 1.008 (1.001-1.035); Urine Squamous Epithelial Cell FEW /hpf (<5); Urine Urobilinogen Normal (Negative); Urine WBC < 1 /HPF (0-5); Urine pH 6.5 (5.0-9.0)
[2024-03-28 20:07] LABS: Amphetamine Screen, Urine Neg (NEGATIVE); Barbiturate Scree,Urine Neg (NEGATIVE); Benzodiazephine Screen, Urine Neg (NEGATIVE); Cannabinoid Screen, Urine Neg (NEGATIVE); Cocaine Screen, Urine Neg (NEGATIVE); Opiate Scree,Urine Neg (NEGATIVE); Phencyclidine Screen, Urine Neg (NEGATIVE)
[2024-03-28] MEDS: INSULIN LANTUS (GLARGINE) 1 /0.01ml (100units/ml) SC SCH (22:58)
[2024-03-29] VITALS (17 sets, daily range): BP systolic 96–121; BP diastolic 41–73; PULSE 55–79; RESP 13–20; TEMP 97.4–98.2; O2SAT 91–99
[2024-03-29 05:35] LABS: Sodium 142 mmol/L (136-145)
[2024-03-29 05:36] LABS: Anion Gap 8 (5-15); Calcium 9.4 mg/dL (8.7-10.4); Carbon Dioxide 25 mmol/L (20-31)
[2024-03-29 05:37] LABS: Basophils # (auto) 0 10 ^3/uL (0-0.2); Basophils % (auto) 0.1 % (0.0-2.0); Eosinophils # (auto) 0 10 ^3/uL (0-0.8); Eosinophils % (auto) 0.2 % (0.0-7.0); Hematocrit 38.5 % (36.0-46.0); Hemoglobin 12.8 g/dL (12.2-16.2); Lymphocytes # (auto) 2.1 10 ^3/uL (0.4-5.4); Lymphocytes % (auto) 17.4 % (10.0-50.0); Mean Corpuscular Hemoglobin 30.5 pg (28.0-32.0); Mean Corpuscular Hgb Conc. 33.2 g/dL (32.0-36.0); Mean Corpuscular Volume 92.1 fL (80.0-100.0); Monocytes # (auto) 0.8 10 ^3/uL (0-1.3); Monocytes % (auto) 7.1 % (0.0-12.0); Neutrophils % (auto) 75.2 % (37.0-80.0); Platelet Count (auto) 167 10^3/uL (140-450); Red Blood Cells 4.18 10^6/uL (4.0-5.20); Red Cell Distribution Width 15.9 % (11.8-14.3)
[2024-03-29 05:47] LABS: Blood Urea Nitrogen 24 mg/dL (9-23); Chloride 109 mmol/L (98-107); Glucose 133 mg/dL (74-106); Potassium 3.4 mmol/L (3.5-5.1)
[2024-03-29] MEDS: ACETAMINOPHEN 325 MG TAB PO PRN (06:27)
[2024-03-29] MEDS: cefTRIAXone 1GM/50ML D5W 50 ML IV SCH (09:59)
[2024-03-29] MEDS: FUROSEMIDE 40 MG/4 ML VIAL IV SCH (10:03)
[2024-03-29] MEDS: POTASSIUM CHL 20 Meq TABLET PO ONE (10:34)
--- NOTE | 2024-03-29 19:03 | DVHPNRES ---
Progress Note Date Seen: Mar 29, 2024 Resident Creating Document: ZEYAD GOYAL RESIDENT Medical Necessity Reason Pt with a Central, PICC or Fol: No Subjective Review of Systems Reports that she is feeling better than yesterday. Denies shortness of breath while on oxygen. Denies dysuria, chest pain, palpitations, fever, chills, headache Objective vital signs Vital Sign Date Time Temp Pulse Resp B/P (MAP) Pulse Ox O2 Delivery O2 Flow Rate FiO2 03/29/24 17:00 98.2 56 18 107/53 (71) 91 98.2 03/29/24 10:11 Nasal Cannula* 2 28 Total Intake and Output 03/28/24 03/28/24 03/29/24 15:00 23:00 07:00 Intake Total 200 ml Output Total 0 ml Balance 200 ml medications Current Medications Medications Dose Ordered Sig/Esme Route Start Time Stop Time Status Last Admin Dose Admin Amlodipine Besylate 5 mg DAILY PO 03/28/24 10:00 03/29/24 10:02 5 MG Carvedilol 3.125 mg Q12HR PO 03/27/24 22:00 03/29/24 10:02 3.125 MG Diagnostic Test (Pha) 1 strip ACHS 03/27/24 22:00 03/29/24 17:00 1 STRIP Insulin Human Regular AC SC 03/28/24 07:00 03/29/24 17:00 6 UNITS Dextrose 50 ml UD PRN IV 03/27/24 19:45 Ondansetron HCl 4 mg Q4HP PRN IV 03/27/24 19:45 Acetaminophen 650 mg Q6HP PRN PO 03/27/24 19:45 03/29/24 06:27 650 MG Aspirin 81 mg DAILY PO 03/28/24 10:00 03/29/24 10:00 81 MG Albuterol 2.5 mg Q8HR NEB 03/28/24 14:00 03/29/24 14:01 2.5 MG Ipratropium [place] 0.5 mg Q8HR NEB 03/28/24 14:00 03/29/24 14:01 0.5 MG Azithromycin 500 mg DAILY PO 03/28/24 10:00 03/29/24 10:35 500 MG Insulin Glargine 18 units HS SC 03/28/24 22:00 03/28/24 22:58 18 UNITS Ceftriaxone Sodium 50 ml @ 100 mls/hr DAILY@09 IV 03/29/24 09:00 03/29/24 09:59 100 MLS/HR Furosemide 40 mg DAILY PO 03/30/24 10:00 Examination Constitution: Patient was alert and oriented to time, place and person and is in no acute respiratory distress Gen - no pallor, no icterus, no cyanosis, no clubbing, no LAD, trace pitting edema. Skin - Patients skin is warm and dry. HEENT - normocephalic, atraumatic, moist mucous membranes. Neck - full ROM, no LAD, no JVD Pulmonary - B/L equal air entry, no wheezing. cardiovascular - normal S1,S2 heard. no murmurs heard. peripheral pulses normal radial 2+, pedal 2+. GI - soft abdomen without tenderness to palpation . no hepatospleenomegaly. Bowel sounds normoactive Neurological - Bilateral upper extremity strength 5/5, bilateral lower extremity strength 5/5, no facial droop, normal speech, no tremor, no sensory deficiets. laboratory and microbiology Laboratory Tests 03/29/24 04:48 Test 03/29/24 04:48 Range/Units Serum Glucose 133 H 74-106 mg/dL Microbiology Date/Time Source Procedure Growth Status 03/28/24 20:22 Nose MRSA Screen - Final Complete 03/27/24 13:42 Blood Blood Culture - Preliminary NO GROWTH AFTER 48 HOURS OF INCUBATION. Resulted Problem List/Assessment/Plan Problem List/Assessment/Plan Assessment Acute hypoxic respiratory failure ? Acute on chronic heart failure with preserved versus reduced ejection fraction Suspected community-acquired pneumonia likely due to Gram-negative versus atypical bacteria Uncontrolled type 2 diabetes mellitus with hyperglycemia Chest x-ray shows bilateral lower lobe haziness likely Interstitial pulmonary edema Echo shows LVEF at 60%,PA systolic pressure is estimated at 30-35 mm Hg. Blood culture showing no growth after 48 hours Respiratory culture pending MRSA negative HbA1c 7.2% COVID and influenza negative Plan - furosemide 40 mg p.o. - continued on carvedilol at low dose 3.125 mg q.12 hours, amlodipine 5 mg q.d. - ceftriaxone 1 g IV daily and azithromycin 500 mg p.o. daily - DuoNebs q.8hr - on oxygen 2 liter/minute via nasal cannula, will try to wean off. - incentive spirometry - insulin Lantus 18 units HS and moderate sliding scale insulin a.c. Goals of care discussed with the patient for over 21 minutes. Full code Plan discussed with Dr. Myles Plan discussed with: Patient My Orders My Orders Orders - ZEYAD GOYAL Procedure Category Date Status Time Respiratory Culture THONY 03/28/24 In Process W/ Gs 13:55 Furosemide Tablet PHA 03/30/24 In Process (Lasix Tablet) 10:00 Date of Service: Mar 29, 2024 Billing Provider: RAJENDRA MYLES MD Common Visit Codes: [id number] INP/OBS CARE(HIGH) ZEYAD GOYAL Mar 29, 2024 19:03 RAJENDRA MYLES MD Mar 31, 2024 16:19
[2024-03-30] VITALS (11 sets, daily range): BP systolic 94–108; BP diastolic 47–66; PULSE 62–76; RESP 12–20; TEMP 97.8–98.5; O2SAT 91–98
--- NOTE | 2024-03-30 10:20 | DVH ---
EXAM: XY CHEST XRAY 1 VIEW Indication: congestion compared with previous CXR Technique: Single frontal view of the chest was obtained Comparison: XY CHEST PORTABLE on DOS: 03/27/24 FINDINGS: Lines and Tubes: None Lungs: No focal consolidation. Pleura: No effusion. No pneumothorax. Cardiomediastinal contours: Unremarkable Bones: No acute osseous abnormality. IMPRESSION: No acute cardiopulmonary disease. No significant change compared to prior exam.
[2024-03-30] MEDS: FUROSEMIDE 40 MG TAB PO SCH (10:52)
[2024-03-30 11:01] LABS: Basophils # (auto) 0 10 ^3/uL (0-0.2); Basophils % (auto) 0.4 % (0.0-2.0); Eosinophils # (auto) 0.2 10 ^3/uL (0-0.8); Eosinophils % (auto) 2.1 % (0.0-7.0); Hematocrit 42.2 % (36.0-46.0); Hemoglobin 14.4 g/dL (12.2-16.2); Lymphocytes # (auto) 2.2 10 ^3/uL (0.4-5.4); Lymphocytes % (auto) 30.2 % (10.0-50.0); Mean Corpuscular Hgb Conc. 34.2 g/dL (32.0-36.0); Mean Corpuscular Volume 90.7 fL (80.0-100.0); Monocytes # (auto) 0.7 10 ^3/uL (0-1.3); Monocytes % (auto) 9.3 % (0.0-12.0); Neutrophils # (auto) 4.2 10 ^3/uL (1.6-8.6); Platelet Count (auto) 181 10^3/uL (140-450); Red Blood Cells 4.65 10^6/uL (4.0-5.20); Red Cell Distribution Width 15.5 % (11.8-14.3); White Blood Cell 7.3 10^3/uL (4.4-10.8)
[2024-03-30 11:13] LABS: Anion Gap 8 (5-15); Carbon Dioxide 26 mmol/L (20-31); Chloride 105 mmol/L (98-107); Sodium 139 mmol/L (136-145)
[2024-03-30 11:14] LABS: Calcium 9.5 mg/dL (8.7-10.4)
[2024-03-30 11:19] LABS: Glucose 206 mg/dL (74-106); Potassium 3.3 mmol/L (3.5-5.1)
[2024-03-30 11:20] LABS: BUN/Creatinine Ratio 21.6 (10.0-20.0); Blood Urea Nitrogen 16 mg/dL (9-23)
[2024-03-30] MEDS ORDERED: AMLO1TAB22 PO (12:06)
[2024-03-30] MEDS ORDERED: METF-490 PO (12:06)
[2024-03-30] MEDS ORDERED: ATOR20TA50 PO (12:06)
[2024-03-30] MEDS ORDERED: FURO40TA4 PO (12:06)
[2024-03-30] MEDS ORDERED: CARV3.1240 PO (12:06)
[2024-03-30] MEDS ORDERED: ASPI1TAB20 PO (12:06)
--- NOTE | 2024-03-30 16:46 | DVHDSRES ---
Discharge Summary Date of Admission Resident Creating Document: ZEYAD GOYAL RESIDENT Mar 27, 2024 at 23:14 Date of Discharge: Mar 30, 2024 Admitting Diagnosis Respiratory failure with hypoxia Generalized weakness Diabetes mellitus with hyperglycemia Wounds: none Labs/Diagnostic Data: Laboratory Results Test 03/30/24 11:09 03/30/24 10:31 03/28/24 19:39 03/28/24 05:28 POC Glucose 183 mg/dl (70-106) White Blood Count 7.3 10^3/uL (4.4-10.8) Red Blood Count 4.65 10^6/uL (4.0-5.20) Hemoglobin 14.4 g/dL (12.2-16.2) Hematocrit 42.2 % (36.0-46.0) Mean Corpuscular Volume 90.7 fL (80.0-100.0) Mean Corpuscular Hemoglobin 31.0 pg (28.0-32.0) Mean Corpuscular Hemoglobin Concent 34.2 g/dL (32.0-36.0) Red Cell Distribution Width 15.5 % (11.8-14.3) Platelet Count 181 10^3/uL (140-450) Mean Platelet Volume 9.5 fL (6.9-10.8) Neutrophils (%) (Auto) 58.0 % (37.0-80.0) Lymphocytes (%) (Auto) 30.2 % (10.0-50.0) Monocytes (%) (Auto) 9.3 % (0.0-12.0) Eosinophils (%) (Auto) 2.1 % (0.0-7.0) Basophils (%) (Auto) 0.4 % (0.0-2.0) Neutrophils # (Auto) 4.2 10 ^3/uL (1.6-8.6) Lymphocytes # (Auto) 2.2 10 ^3/uL (0.4-5.4) Monocytes # (Auto) 0.7 10 ^3/uL (0-1.3) Eosinophils # (Auto) 0.2 10 ^3/uL (0-0.8) Basophils # (Auto) 0 10 ^3/uL (0-0.2) Nucleated Red Blood Cells 0.0 % Sodium Level 139 mmol/L (136-145) Potassium Level 3.3 mmol/L (3.5-5.1) Chloride Level 105 mmol/L (98-107) Carbon Dioxide Level 26 mmol/L (20-31) Anion Gap 8 (5-15) Blood Urea Nitrogen 16 mg/dL (9-23) Creatinine 0.74 mg/dL (0.550-1.02) Glomerular Filtration Rate Calc 93 mL/min (>90) BUN/Creatinine Ratio 21.6 (10.0-20.0) Serum Glucose 206 mg/dL (74-106) Calcium Level 9.5 mg/dL (8.7-10.4) Urine Color Colorless (Yellow) Urine Clarity Clear (Clear) Urine pH 6.5 (5.0-9.0) Urine Specific [place] 1.008 (1.001-1.035) Urine Protein Negative (Negative) Urine Ketones Negative (Negative) Urine Blood Negative /uL (Negative) Urine Nitrite Negative (Negative) Urine Bilirubin Negative (Negative) Urine Urobilinogen Normal mg/dL (Negative) Urine Leukocyte Esterase Negative /uL (Negative) Urine RBC <1 /hpf (0 - 4) Urine Microscopic WBC < 1 /HPF (0-5) Urine Squamous Epithelial Cells Few /hpf (<5) Urine Bacteria None seen /hpf (None Seen) Urine Glucose Normal mg/dL (Normal) Urine Opiates Screen Neg (NEGATIVE) Urine Fentanyl Screen Neg (NEGATIVE) Urine Barbiturates Screen Neg (NEGATIVE) Urine Phencyclidine Screen Neg (NEGATIVE) Urine Amphetamines Screen Neg (NEGATIVE) Urine Benzodiazepines Screen Neg (NEGATIVE) Urine Cocaine Screen Neg (NEGATIVE) Urine Cannabinoids Screen Neg (NEGATIVE) Hemoglobin A1c 7.2 % A1C (<5.7) Total Bilirubin 0.6 mg/dL (0.2-1.0) Aspartate Amino Transferase (AST) 22 U/L (13-40) Alanine Aminotransferase (ALT) 23 U/L (7-40) Alkaline Phosphatase 117 U/L (46-116) Total Protein 8.2 g/dL (5.7-8.2) Albumin 3.3 g/dL (3.2-4.8) Test 03/27/24 17:00 03/27/24 14:44 03/27/24 13:42 Influenza Type A Antigen Negative (Negative) Influenza Type B Antigen Negative (Negative) SARS-CoV-2 Antigen (Rapid) Negative (NEGATIVE) Troponin I High Sensitivity 29 ng/L (</=34) Lactic Acid Level 1.5 mmol/L (0.4-2.0) B-Type Natriuretic Peptide 27.74 pg/mL (0-100) Other Laboratory Tests 03/30/24 10:31 Brief Hx & Hospital Course: Patient is a 59-year-old female with a past medical history of type 2 diabetes mellitus, hypertension, coronary artery disease came to the ED with a chief complaint of worsening shortness of breath. Patient reports that since the last 2 weeks she has had worsening shortness of breath. About 2 weeks ago she started to have cough which was mostly dry with the associated nasal congestion, fever and chills. The patient reportedly went to urgent care clinic, patient reports about 2 weeks ago she was diagnosed with the COVID and pneumonia at [facility] and was recently discharged. Yesterday she started to have worsening shortness of breath following which she called the 911 who reported her oxygen was less than 88% on arrival and patient was placed on oxygen and brought to the hospital for further evaluation. Past medical history: Type 2 diabetes mellitus, hypertension, coronary artery disease(status post coronary angiography not showing any occlusive coronary artery disease) Past surgical history: Coronary angiography Social history: Patient lives with family and currently denies smoking, alcohol, drug use Medications: Carvedilol 6.25 mg b.i.d., amlodipine 10 mg q.d., metformin 1000 mg b.i.d., aspirin 81 mg Hospital course Patient was admitted to the hospital for worsening shortness a breath was started on oxygen via nasal cannula at 2-3 liter/minute. Patient was started on IV Lasix in addition to her home medications carvedilol. With suspicion of pneumonia/pneumonitis patient was given IV ceftriaxone and oral azithromycin and was given scheduled breathing treatments with albuterol and ipratropium. Over the course of hospital stay patient's breathing improved with decreased oxygen requirements. Patient was eventually weaned off oxygen and was stable to discharge. Echocardiogram showed LVEF of 60% with the elevated PA systolic pressure estimated at 30-35 mmHg, dilated right ventricle with preserved systolic function. Patient was also noted to have high blood sugars with elevated HbA1c in the hospital was started on insulin Lantus and moderate insulin sliding scale. Discharge plan - Discharged to home - follow up with the PCP in 1 week - medications- amlodipine 5 mg daily, carvedilol 3.125 mg b.i.d., furosemide 40 mg daily, metformin 1000 mg ER daily, aspirin 81 mg daily, atorvastatin 20 mg p.o. HS Consults/Reason for consult none Operations or Procedures Echocardiogram Normal left ventricular size and systolic function. Ejection fraction is estimated at 60%. Dilated right ventricle with preserved systolic function. No hemodynamically significant valvular disease. PA systolic pressure is estimated at 30-35 mm Hg. Condition at Discharge: Good Final Diagnosis/Problems List Acute hypoxic respiratory failure ?Acute on chronic heart failure with preserved ejection fraction Suspected community-acquired pneumonia likely due to Gram-negative versus atypical bacteria Uncontrolled type 2 diabetes mellitus with hyperglycemia ?obstructive sleep apneoa Discharge Disposition: Home Discharge Instruct/Medications Diet: Cardiac 2g Na,low cholest Diet comment: limit total fluid intake to less than 1800ml/day Activity: No Restrictions, As Tolerated Follow Up/Referral: Follow up in the discharge clinic in one week Follow with the PCP in one week Medications: as per EMR Discharge Statement: "Patient was advised to return to the ER or call 911 if any headaches, dizziness, shortness of breath, chest pain, abdominal pain, bleeding, fevers, or worsening of medical condition. Patient was counseled about treatment plan, medications, possible side effects, patientverbalized understanding. All questions were answered to the best of my ability. This discharge took greater then 30 minutes in planning, reviewing documentation, counseling the patient, and discussing with other team members." ASSESSMENT ASSESSMENT Assessment Acute hypoxic respiratory failure ?Acute on chronic heart failure with preserved ejection fraction Suspected community-acquired pneumonia likely due to Gram-negative versus atypical bacteria Uncontrolled type 2 diabetes mellitus with hyperglycemia ?obstructive sleep apneoa Date of Service: Mar 30, 2024 Billing Provider: RAJENDRA MYLES MD Common Visit Codes: [id number] DISCH DAY >30min ZEYAD GOYAL RESIDENT Mar 30, 2024 16:45 RAJENDRA MYLES MD Mar 31, 2024 16:20
== END 2024-03-30 14:20 | disposition home or self-care (01) | DRG 177 ==
LOC: ER 13:03 → EDBD 13:03 → TELE 23:14 → TELE-CENTR 03-28 22:02
PROVIDERS: ADMIT Student in an Organized Health Care Education/Training Program; ATTEND Student in an Organized Health Care Education/Training Program
DX: J15.69 Pneumonia due to other Gram-negative bacteria (principal); I50.33 Acute on chronic diastolic (congestive) heart failure; J96.01 Acute respiratory failure with hypoxia; I10 Essential (primary) hypertension; E11.65 Type 2 diabetes mellitus with hyperglycemia; Z20.822 Contact with and (suspected) exposure to COVID-19; G47.33 Obstructive sleep apnea (adult) (pediatric)
CPT/HCPCS: 36415; 71045; 80048; 80053; 80307; 81001; 82962; 83036; 83605; 83880; 84484; 85025; 87040; 87070; 87081; 87205; 87426; 87804; 93005; 93306; 94640; 99291; G0378; J1815